=== PATIENT | female | born 1955 ===

== ENCOUNTER 2017-12-14 11:42 | Emergency (ER) | payer OTHER ==
[2017-12-14 12:06] VITALS: TEMP 100
[2017-12-14] MEDS ORDERED: Sodium Chloride 0.9% 1,000 ML IV ONE ×2 (12:41→15:31)
--- NOTE | 2017-12-14 12:41 | C.PDOC ---
History Of Present Illness 62-YEAR-OLD FEMALE, PRESENTS TO THE EMERGENCY DEPARTMENT WITH COMPLAINTS OF EPIGASTRIC ABDOMINAL PAIN ONGOING SINCE THIS AM, ASSOCIATED WITH NAUSEA. DENIES FEVER, CP, SOB, GI BLEED, SYMPTOMS. EXAM MILD DISCOMFORT, EPIGASTRIC TEN NO R/G Time Seen by Provider: 12/14/17 12:25 Chief Complaint (Nursing): Abdominal Pain History Per: Patient History/Exam Limitations: no limitations Onset/Duration Of Symptoms: Days (1) Current Symptoms Are (Timing): Still Present Severity: Moderate Location Of Pain/Discomfort: Epigastric Past Medical History Reviewed: Historical Data, Nursing Documentation, Vital Signs Vital Signs: Last Vital Signs Temp 100.0 F H 12/14/17 12:03 Pulse 56 L 12/14/17 16:57 Resp 20 12/14/17 16:57 BP 99/46 L 12/14/17 16:57 Pulse Ox 99 12/14/17 16:57 - Medical History PMH: Back Problems, HTN Surgical History: Cholecystectomy Family History: States: No Known Family Hx - Social History Hx Tobacco Use: No Hx Alcohol Use: No Hx Substance Use: No - Immunization History Hx Tetanus Toxoid Vaccination: No Hx Influenza Vaccination: Yes Hx Pneumococcal Vaccination: No Review Of Systems Except As Marked, All Systems Reviewed And Found Negative. Constitutional: Negative for: Fever, Chills Cardiovascular: Negative for: Chest Pain Respiratory: Negative for: Shortness of Breath Gastrointestinal: Positive for: Nausea, Abdominal Pain. Negative for: Vomiting Genitourinary: Negative for: Dysuria Musculoskeletal: Negative for: Back Pain Skin: Negative for: Rash Neurological: Negative for: Weakness, Numbness, Headache Physical Exam - Physical Exam Appears: Non-toxic, No Acute Distress Skin: Warm, Dry, No Rash Head: Atraumatic Eye(s): bilateral: Normal Inspection, PERRL Nose: Normal Oral Mucosa: Moist Lips: Normal Appearing Neck: Normal ROM Cardiovascular: Rhythm Regular, No Murmur Respiratory: Normal Breath Sounds, No Accessory Muscle Use Gastrointestinal/Abdominal: Soft, Tenderness (MILD, EPIGASTRIC), No Guarding, No Rebound Extremity: Normal ROM Neurological/Psych: Oriented x3, Normal Speech ED Course And Treatment - Laboratory Results Result Diagrams: 12/14/17 12:56 12/14/17 12:56 O2 Sat by Pulse Oximetry: 97 (RA) Pulse Ox Interpretation: Normal Progress - Re-Evaluation Re-evaluation Note: 12/14/17 15:39 PAIN FREE. SBP 88. WILL CONT IVF 12/14/17 17:19 FEELS BETTER. VSS - Data Reviewed Data Reviewed: Lab, Diagnostic imaging, Old records Disposition Counseled Patient/Family Regarding: Studies Performed, Diagnosis, Need For Followup, Rx Given - Disposition Referrals: YOUR,PMD [Other] Disposition: HOME/ ROUTINE Disposition Time: 17:19 Condition: IMPROVED Prescriptions: Magnesium Citrate [[facility] Magnesium Citrate] 300 ml PO ONCE #1 bottle Instructions: Acute Abdominal Pain (ED), Constipation (ED) Forms: [employer] (Arabic) Print Language: SERBIAN - Clinical Impression Clinical Impression: Abdominal pain, Constipation - Scribe Statement The provider has reviewed the documentation as recorded by the Scribe (Jose Frederick) All medical record entries made by the Scribe were at my direction and personally dictated by me. I have reviewed the chart and agree that the record accurately reflects my personal performance of the history, physical exam, medical decision making, and the department course for this patient. I have also personally directed, reviewed, and agree with the discharge instructions and disposition.
[2017-12-14] MEDS ORDERED: Lidocaine 109 MG in Sodium Chloride 0.9% 100 ML IV STA (12:43)
[2017-12-14] MEDS ORDERED: Sodium Chloride 0.9% 1,000 ML ONE ×2 (12:51→15:34)
[2017-12-14 13:15] LABS: BASO % 0.4 % (0.0-2.0); EOS % 0.5 % (0.0-4.0); HEMOGLOBIN 13.5 g/dL (11.0-16.0); LYMPH # 0.7 K/uL (1.0-4.3); LYMPH % 12.9 % (20.0-40.0); MEAN CELL VOLUME 88.1 fL (81.0-99.0); MEAN CORPUSCULAR HEMOGLOBIN 29.7 pg (27.0-31.0); MEAN CORPUSCULAR HGB CONC 33.7 g/dL (33.0-37.0); MEAN PLATELET VOLUME 9.5 fL (7.2-11.7); MONO # 0.5 K/uL (0.0-0.8); MONO % 8.7 % (0.0-10.0); NEUT # 4.2 K/uL (1.8-7.0); NEUT % 77.5 % (50.0-75.0); RBC 4.54 Mil/uL (3.80-5.20); RED CELL DISTRIBUTION WIDTH 13.7 % (11.5-14.5); SQUAMOUS EPITHIAL < 1 /hpf (0-5); URINE BILIRUBIN NEGATIVE (NEGATIVE); URINE BLOOD NEGATIVE (NEGATIVE); URINE CLARITY Clear (Clear); URINE COLOR Yellow (YELLOW); URINE GLUCOSE (UA) NORMAL (Normal); URINE LEUKOCYTE ESTERASE 1+ Leu/uL (Negative); URINE NITRATE NEGATIVE (NEGATIVE); URINE PROTEIN NEGATIVE (NEGATIVE); WHITE BLOOD COUNT 5.5 K/uL (4.8-10.8)
[2017-12-14 13:44] LABS: ALB/GLOB RATIO 1.3 (1.0-2.1); ALBUMIN 4.2 g/dL (3.5-5.0); ALT/SGPT 27 U/L (9-52); AST/SGOT 29 U/L (14-36); BLOOD UREA NITROGEN 13 mg/dL (7-17); CALCIUM 8.5 mg/dl (8.6-10.4); GFR AFRICAN-AMERICAN > 60; GFR NON-AFRICAN AMERICAN > 60; LIPASE 117 U/L (23-300)
--- NOTE | 2017-12-14 15:02 | CT ---
CT abdomen and pelvis History: Abdominal pain. Right flank pain. Comparison: 05/14/2016 Technique: Multiple contiguous axial images were performed through the abdomen and pelvis without the use of intravenous contrast. Subsequently, sagittal and coronal reformatted images were obtained. This CT exam was performed using one or more of the following dose reduction techniques: Automated exposure control, adjustment of the mA and/or kV according to patient size, and/or use of iterative reconstruction technique. Findings: Multiple small pulmonary nodules are again noted at the lung bases as well as within the right middle lobe. For example, within the right middle lobe on series 3, image 3 there is a 3 millimeter nodule ; more inferiorly a 3.9 millimeter subpleural nodule in the right middle lobe on series 3, image 17; more inferiorly in the right middle lobe a 2.6 millimeter subpleural nodule on series 3, image 25 ; a 3.7 millimeter subpleural nodule along the lateral aspect of the left lower lobe, two 2 millimeter subpleural nodules along the lateral aspect of the left lower lobe. No pleural or pericardial effusion. Liver is preserved. Prior cholecystectomy. Spleen is preserved. Adrenal glands are preserved. Mild fatty atrophy of the pancreas. Upper abdominal bowel is preserved. Right kidney: No calculi or hydronephrosis. Left Kidney: No no calculi or hydronephrosis. Urinary bladder is preserved. Prior hysterectomy. Moderate fecal retention in the colon. Appendix is visualized, within normal limits. Few calcification and plaque within the aorta. Few shotty para-aortic and mesenteric lymph nodes. Subcutaneous partially calcified granulomas within the gluteal regions. Degenerative changes in the spine and hips. Degenerative changes in the lumbar spine most prominent at the L1-2 level. Impression: Negative acute abdomen and pelvis. Multiple pulmonary nodules as described above. Correlation with chest CT may be helpful if clinically indicated. Additional findings as above.
[2017-12-14 16:36] VITALS: RESP 20
[2017-12-14 16:57] VITALS: BP 99/46; PULSE 56
[2017-12-14 17:22] VITALS: O2SAT 97
== END 2017-12-14 17:35 | disposition home or self-care (01) ==
LOC: C.ER 11:42
DX: K59.00 Constipation, unspecified (principal); R10.13 Epigastric pain; I10 Essential (primary) hypertension
CPT/HCPCS: 74176; 80053; 81001; 83690; 85025; 96361; 96374; 96375; 99285; J1885; J2001; J2405; J7040